=== PATIENT | female | born 1945 | race Caucasian/White ===

== ENCOUNTER → 2024-04-08 | Outpatient (CLI) | payer MEDICARE, BC, SELFPAY ==
[2024-04-08 16:19] LABS: Basophils % (Auto) 1 % (0-2.5); Eosinophils # (Auto) 0.1 Thou/mm3 (0.0-0.5); Eosinophils % (Auto) 2 % (0-10); Hematocrit 35.8 % (36.0-46.0); Hemoglobin 12.3 g/dL (12.0-16.0); Immature Granulocytes % (Auto) 0 % (0-0); Immature Granulocytes Auto 0.01 Thou/mm3 (0.00-0.00); Lymphocytes # (Auto) 2.2 Thou/mm3 (1.0-4.8); Lymphocytes % (Auto) 33 % (10-50); Mean Corpuscular HGB Conc 34.4 g/dl (31.0-37.0); Mean Corpuscular Hemoglobin 30.4 pg (25.0-35.0); Mean Corpuscular Volume 88 fL (80-100); Monocytes # (Auto) 0.5 Thou/mm3 (0.0-0.8); Monocytes % (Auto) 7 % (0-12); Neutrophils # (Auto) 3.9 Thou/mm3 (1.8-7.7); Neutrophils % (Auto) 58 % (37-80); Nucleated Red Blood Cell % 0 /100 WBC (0); Platelet Count 305 Thou/mm3 (140-440); RDW Standard Deviation 40.8 fL (36.4-46.3); Red Blood Count 4.05 Miln/mm3 (4.00-5.20); White Blood Count 6.7 Thou/mm3 (3.6-11.0)
[2024-04-08 16:43] LABS: Alanine Aminotransferase 8 U/L (10-49); Albumin, Serum 4.3 gm/dL (3.4-4.8); Albumin/Globulin Ratio 2.2 (1.2-2.2); Alkaline Phosphatase 64 U/L (46-116); Anion Gap 5 (7-16); Aspartate Amino Transferase 16 U/L (0-34); BUN/Creatinine Ratio 11 Ratio (12-20); Bilirubin,Total 0.3 mg/dL (0.3-1.2); Blood Urea Nitrogen 10 mg/dL (9-23); Calcium 9.4 mg/dL (8.3-10.6); Calcium (Corrected) 9.4 mg/dL (8.5-10.1); Carbon Dioxide 27.7 mMol/L (20.0-31.0); Chloride 104 mMol/L (98-107); Creatinine (Component) 0.9 mg/dL (0.6-1.3); Free T3 3.2 pg/mL (2.3-4.2); Free T4 (Free Thyroxine) 1.07 ng/dL (0.89-1.76); Glucose 107 mg/dL (74-106); Osmolality,Calculated 272 (275-295); Potassium 3.8 mMol/L (3.4-5.1); Sodium 137 mMol/L (136-145); Thyroid Stimulating Hormone 1.15 uIU/mL (0.55-4.78); Total Protein 6.3 gm/dL (5.7-8.2); eGFR > 60 See Note
[2024-04-08 17:20] LABS: Follicle Stimulating Hormone 75.26 mIU/mL (See Note); Vitamin B12 > 2000 pg/mL (211-911)
[2024-04-20 06:57] LABS: Estradiol, Ultrasensitive* 33 pg/mL; Sex Hormone Binding Globulin* 49 nmol/L (14-73); Testosterone, Free,Dialysis 0.6 pg/mL (0.2-3.7); Testosterone, Total, Dialysis 8 ng/dL (2-45); Thyroid Peroxidase Antibodies* <1 IU/mL (<9); Vitamin D,1,25 (OH)2,Total 36 pg/mL (18-72); Vitamin D2, 1,25 (OH)2 <8 pg/mL; Vitamin D3, 1,25 (OH)2 36 pg/mL
== END | disposition home or self-care (01) ==
LOC: COPL 14:49
PROVIDERS: PCP Nurse Practitioner Family; Referring Provider Nurse Practitioner Family; Visit Provider Nurse Practitioner Family
DX: I10 Essential (primary) hypertension (principal); E34.9 Endocrine disorder, unspecified; E53.8 Deficiency of other specified B group vitamins; N95.1 Menopausal and female climacteric states; E03.9 Hypothyroidism, unspecified
CPT/HCPCS: 36415; 80053; 82607; 82652; 82670; 83001; 84270; 84402; 84403; 84439; 84443; 84481; 85025; 86376

== ENCOUNTER 2025-04-24 15:59 | Emergency (ER) | payer MEDICARE, BC, SELFPAY ==
[2025-04-24 16:25] VITALS: BP 147/67; PULSE 80; RESP 20; TEMP 36.9; O2SAT 99; BMI 21.9
--- NOTE | 2025-04-24 16:46 | PD.EDWOUND ---
ED Wound/Laceration-RME/HPI General Chief Complaint: Wound/Laceration Stated Complaint: LACERATION TO PALM OF RIGHT HAND Time Seen by Provider: 04/24/25 16:34 Arrival date/time: 04/24/25 15:59 Limitations: no limitations RME / HPI Onset (ago): hour(s) Location: other (hand ) Extremity Location: Right: hand Patient tetanus UTD: No Context: accidental Associated symptoms: pain Treatments prior to arrival: bandage RME / HPI narrative: 79-year-old female here for slip and fall landing on her right hand causing a laceration. No striking of her head no other extremities injured. Moving wrist just fine. States she went to fall forward and cut her right hand on a piece of wood. Denies foreign body sensation. Tdap is not up-to-date. No fever. Patient jokes that many years ago she cut the left hand in the exact same place. Able to move her hand without difficulty Related Data Allergies Allergy/AdvReac Type Severity Reaction Status Date / Time Penicillins Allergy Mild Hives Verified 04/24/25 16:02 Sulfa (Sulfonamide Allergy Mild Hives Verified 04/24/25 16:02 Antibiotics) diclofenac Allergy Verified 04/24/25 16:02 Review of Systems Review of Systems Systems Reviewed: All systems reviewed, normal except as documented Constitutional Constitutional: Denies fever(s) Musculoskeletal Musculoskeletal: Reports as per HPI Integumentary/Breasts Skin/Breast: Reports as per HPI ED Exam General Limitations: Present no limitations General appearance: Present alert and in no apparent distress Head Head exam: Present atraumatic Eye Eye exam: Present normal appearance, PERRL and EOMI ENT ENT exam: Present normal exam, normal oropharynx and mucous membranes moist Respiratory Respiratory exam: Present normal lung sounds bilaterally Cardiovascular Cardiovascular exam: Present regular rate, normal rhythm and normal heart sounds Abdominal Exam Abdominal exam: Present soft and normal bowel sounds Extremities Exam Extremities exam: Present full ROM and tenderness (1.5cm laceration to right thenar aspect of right hand ) Back Exam Back exam: Present normal inspection and full ROM Skin Skin exam: Present warm, dry, intact and normal color Course Quality Measures none Orders Category Date Time Status Suture / Staple Removal NOW Care 04/24/25 16:45 Completed Lidocaine 1% Vial 20 ml [Xylocaine 1% 20 ML] Med 04/24/25 16:45 Discontinued 10 ml INFL X1 ONE TET,DIP/PERT AC (Adult)-Tdap [Boostrix Adult (Tdap) Med 04/24/25 16:45 Discontinued Vacc] 0.5 ml IMI .ONCE ONE Vital Signs Vital signs: Vital Signs Temperature 98.5 F 04/24/25 16:25 Pulse Rate 80 04/24/25 16:25 Respiratory Rate 20 04/24/25 16:25 Blood Pressure 147/67 H 04/24/25 16:25 Pulse Oximetry (%) 99 04/24/25 16:25 Oxygen Delivery Method Room Air 04/24/25 16:25 PROCEDURES: Laceration Laceration 1: Site: hand Side (If applicable): right Size (cm): 1.5 Description: irregular Depth: simple, single layer Local Anesthetic: lidocaine 1% Amount of anesthesia used (mL): 5 Pre-repair: wound explored, irrigated extensively, deep structures intact, extensive debridement and wound margins revised Skin layer closed with: nylon Suture size (cm): 5-0 Number of sutures: 13 Technique: simple, interrupted Wound / Laceration Patient data External records reviewed:: [facility] previous records Clinical information provided by:: patient and family Social determinants that could affect healthcare access:: other (specify) (no pcp appt on weekends ) Patient has the following chronic illnesses:: none How is presenting disease/condition affected by chronic disease/condition?: no chronic disease Evaluation data The following diagnostics were reviewed and interpreted by me:: other (specify) (none warranted today ) Lab and/or radiology exams considered but not ordered:: xray of right hand and wrist considered however able to move full range of motion nontender other than laceration Interpretation Summary: None Medications / Prescriptions Medications or Prescriptions considered but not ordered:: Antibiotics are considered however given no diabetes and cleaned wound debridement unlikely to benefit Medication administrations:: Medication Administration History Discontinued Medications Diphtheria/Tetanus/Acell Pertussis (Diphth,Pertuss(Acell),Tet Vac 0.5 Ml Syr- Adult) 0.5 ml IMi .ONCE ONE Stop: 04/24/25 16:46 Last Admin: 04/24/25 17:16 Dose: 0.5 ml Documented By: QIAN Lidocaine HCl (Lidocaine Hcl 1% 20 Ml Vial) 10 ml INFL X1 ONE Stop: 04/24/25 16:46 Last Admin: 04/24/25 17:17 Dose: 10 ml Documented By: QIAN Comments: given to provider MAUREEN See above Consultations Consultation(s) initiated? (list below): No Diagnosis Wound Differential Diagnosis: laceration, abscess, abrasion and avulsion of skin Most likely diagnosis given after review of the tests above:: Right hand laceration repaired Under immunized status Admission Indicated Admission indicated?: not indicated Admission Request Was there a request for admission?: No Disposition Plan Disposition Plan: Discharge Discharge Attestation Discharge Attestation: The patient and all family members were given an opportunity to ask questions and understood the discharge instructions. Discharge instructions specifically effects, indications for sooner follow up or return to the emergency department, and the expected course of current diagnosis. Patient condition: Stable Discharge Plan Plan Patient Disposition: HOME (Self Care) Discharge Disposition comment: f/u with pcp in 2-3days Prescriptions/Referrals Referrals: Meng Haji COMPLETION SUPERVISOR [Primary Care Provider] - In 1 week Problem List Clinical Impression: Laceration Patient/Caregiver Discharge Instructions Print Language: Czech Stand Alone Forms: Lilia Award Info., Patient Portal Info Letter PA/[employer] Supervising Physician PA/[employer] Supervising Physician: Dr. clay
[2025-04-24] MEDS: DIPHTH,PERTUSS(ACELL),TET VAC 0.5 ML SYR- ADULT IMi (17:16)
[2025-04-24] MEDS: LIDOCAINE HCL 1% 20 ML VIAL 10 ML INFL (17:17)
== END 2025-04-24 18:11 | disposition home or self-care (01) ==
PROVIDERS: Emergency Provider Emergency Medicine; PCP Nurse Practitioner Family
DX: S61.411A Laceration without foreign body of right hand, initial encounter (principal); W01.198A Fall on same level from slipping, tripping and stumbling with subsequent striking against other object, initial encounter; Z23 Encounter for immunization
CPT/HCPCS: 12002; 90471; 90715; 99281; J3490